=== PATIENT | female | born 1970 | race Two or more races ===

== ENCOUNTER 2017-10-03 10:31 | Emergency (ER) | payer OTHER ==
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
[2017-10-03 13:19] VITALS: BP 136/88
== END 2017-10-03 13:18 | disposition home or self-care (01) ==
LOC: ER 10:31
DX: S20.219D Contusion of unspecified front wall of thorax, subsequent encounter (principal); S60 Superficial injury of wrist, hand and fingers; M25.571 Pain in right ankle and joints of right foot; M54.2 Cervicalgia; R07.89 Other chest pain; M25.531 Pain in right wrist; M25.532 Pain in left wrist; M25.572 Pain in left ankle and joints of left foot; I10 Essential (primary) hypertension; V87.7XXD Person injured in collision between other specified motor vehicles (traffic), subsequent encounter; Z79.899 Other long term (current) drug therapy
CPT/HCPCS: 71046; 72125; 99284